=== PATIENT | male | born 1965 | race Caucasian/White ===

== ENCOUNTER 2020-08-06 08:15 | Outpatient (REF) | payer MEDICARE, MEDICAID, SELFPAY | END 2020-08-06 08:16 | disposition home or self-care (01) | LOC: HO.HOSX 08:15 | PROVIDERS: Visit Provider Physician Assistant | DX: M16.11 Unilateral primary osteoarthritis, right hip (principal); Z96.642 Presence of left artificial hip joint | CPT/HCPCS: 99202 ==

== ENCOUNTER → 2020-08-12 13:48 | Outpatient (BNVA) | payer MEDICARE, MEDICAID, SELFPAY | PROVIDERS: PCP Registered Nurse; Visit Provider Orthopaedic Surgery | DX: Z13.89 Encounter for screening for other disorder (principal) | CPT/HCPCS: 99212 ==

== ENCOUNTER → 2020-09-23 12:53 | Outpatient (REF) | payer MEDICARE, MEDICAID, SELFPAY ==
--- NOTE | 2020-09-23 14:11 | ECG_ITS ---
Test Reason : Z01.810 - Encounter for preprocedural cardiovascular exam... Blood Pressure : / mmHG Vent. Rate : 070 BPM Atrial Rate : 070 BPM P-R Int : 156 ms QRS Dur : 080 ms QT Int : 362 ms P-R-T Axes : 035 080 021 degrees QTc Int : 390 ms Normal sinus rhythm Normal ECG No previous ECGs available Referred By: Darnell Instrum Electronically Signed By:KENNEDY LADD
[2020-09-23 15:01] LABS: MANUAL DIFF FLAG NO
[2020-09-23 15:08] LABS: Basophils Percent Auto 0.4 % (0-2); Eosinophils Absolute Auto 0.1 X10*3/uL (0.0-0.4); Eosinophils Percent Auto 1.2 % (0-4); Hematocrit 46.9 % (42-52); Hemoglobin 15.9 g/dl (14.0-18.0); Imm Gran Abs Auto 0.08 X10*3/uL (0.00-0.03); Lymphocytes Absolute Auto 2.6 X10*3/uL (1.2-4.9); Lymphocytes Percent Auto 32.4 % (20-40); Mean Corpuscular HGB Conc 33.9 g/dl (31.0-36.0); Mean Corpuscular Hemoglobin 29.6 pg (27.0-33.0); Mean Corpuscular Volume 87.2 fL (80-98); Mean Platelet Volume 9.2 fL (9.4-12.4); Monocytes Absolute Auto 0.7 X10*3/uL (0.1-1.2); Monocytes Percent Auto 8.6 % (2-11); Neutrophils Absolute Auto 4.6 X10*3/uL (2.0-8.3); Neutrophils Percent Auto 56.4 % (45-73); Platelet Count 212 X10*3/uL (160-400); Red Blood Count 5.38 X10*6/uL (4.60-5.80); Red Cell Distribution Width 13.2 % (11.0-16.0); White Blood Count 8.1 X10*3/uL (4.8-10.8)
[2020-09-23 15:32] LABS: Anion Gap 10 (12-20); Blood Urea Nitrogen 18 mg/dL (9-16); Calcium 9.3 mg/dL (8.4-10.2); Carbon Dioxide 33 mmol/L (22-29); Chloride 103 mmol/L (96-108); Estimated Glomerular Filt Rate > 60; Glucose Random 100 mg/dL (60-115); Potassium 4.8 mmol/L (3.3-5.1); Sodium 141 mmol/L (135-145)
== END ==
LOC: HO.CARD 12:53
PROVIDERS: Visit Provider Orthopaedic Surgery
DX: Z01.810 Encounter for preprocedural cardiovascular examination (principal); Z01.812 Encounter for preprocedural laboratory examination
CPT/HCPCS: 36415; 80048; 85025; 93005

== ENCOUNTER → 2020-10-22 12:27 | Outpatient (BNVA) | payer MEDICARE, MEDICAID, SELFPAY | PROVIDERS: Visit Provider Physician Assistant | DX: M16.11 Unilateral primary osteoarthritis, right hip (principal) | CPT/HCPCS: 99212 ==

== ENCOUNTER 2020-10-27 06:25 | Inpatient (IN) | payer MEDICARE, MEDICAID, SELFPAY ==
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
[2020-10-20 12:01] VITALS: BP 148/72; PULSE 65; RESP 18; BMI 38.3
[2020-10-20 15:02] LABS: MRSA Nasal PCR NEGATIVE (Negative); SA Nasal PCR NEGATIVE (Negative)
[2020-10-27] VITALS (14 sets, daily range): BP systolic 127–179; BP diastolic 72–101; PULSE 64–78; RESP 14–20; TEMP 36.1–36.8; O2SAT 94–99
--- NOTE | ~2020-10-27 | XR_ITS ---
EXAMINATION: XR HIP, RIGHT CLINICAL INFORMATION: Postop COMPARISON: Previous x-ray June 2020 TECHNIQUE: AP view of the lower pelvis and 2 views of the right hip. FINDINGS: There is a new right hip replacement in satisfactory position. No fracture or dislocation is seen. There is a left hip replacement in satisfactory position. There are postoperative changes to the soft tissues. XR/XR hip RT w PEL1V IMPRESSION: Satisfactory appearance of right hip replacement.
[2020-10-27] MEDS: oxyCODONE HCl ER 10 MG TAB.ER.12H PO (06:38)
[2020-10-27 06:58] LABS: COVID-19 Test Negative (Negative)
[2020-10-27] MEDS: Lactated Ringers 1,000 ML 80 ML IVCONT ×3 (07:06→22:50)
--- NOTE | 2020-10-27 07:36 | MHC.SHP ---
Pre-Procedural Eval Section A Date of Service: 10/27/20 The patient is an INPATIENT: No Changes since office visit: No Cold of Flu in the past 2 weeks, No New Medical Problems, No Changes in Medication and No Patient answered all questions The History & Physical has been completed within 30 days and I have reviewed it.: Yes Section B Chief Complaint: right hip osteoarthritis Allergies: Allergies Allergy/AdvReac Type Severity Reaction Status Date / Time NSAIDS (Non-Steroidal AdvReac Severe severe Verified 10/20/20 12:33 Anti-Inflamma sstomach pain Plan I have reviewed the history and physical and performed a pertinent physical examination on my patient. No changes have occurred unless specified.
[2020-10-27] MEDS: HYDROmorphone HCl 0.5 MG/0.5 ML SYRINGE IVPUSH ×4 (09:48→10:13)
[2020-10-27] MEDS: LORazepam 2 MG/ML VIAL IVPUSH (09:58)
[2020-10-27] MEDS: oxyCODONE HCl Immed Release 5 MG TABLET 10 MG PO ×4 (10:01→22:32)
[2020-10-27] MEDS: Morphine Sulfate 4 MG/ML CARTRIDGE 3 MG IVPUSH ×5 (12:40→21:36)
--- NOTE | 2020-10-27 12:59 | W.PM.OPN ---
Operative Note Operative Note Date of Service: 10/27/20 Narrative: OPERATIVE PROCEDURE SURGEON: Dr Patrick(Theresa) Instrum PAYROLL ADMINISTRATOR: Valentín Bolanos PAC PREOP DIAGNOSIS: Osteoarthritis right hip POSTOP DIAGNOSIS: Same OPERATIVE PROCEDURE: Right Total hip arthroplasty - Trini Accolade II size 4 x 132 degree femoral component, 36 mm standard Biolox head, 54 mm Trident acetablular component, 36 mm x 0 degrees acetabular liner CLINICAL NOTE: This very pleasant individual comes in today in regards to their right hip. There is evidence of osteoarthritis. This failed nonoperative management. Therefore after explaining the risks benefits and alternatives and answering all the questions it was mutually agreed upon to carry following procedure. OPERATIVE DETAILS Under a general anesthetic the patient was placed in the left decubitus position. The leg was then prepped and draped in standard fashion. Surgical time-out was then performed. Patient is identified. Procedure confirmed. Site confirmed. Medical and allergy history was reviewed. Preoperative antibiotics were given. Standard DVT prophylaxis in place. Transemic acid was given as well. All was discussed and agreed upon. Standard anterolateral approach to the hip was carried out. Hemostasis was achieved along the way at all points with electrocautery. This brought us down to the level of the fascia slime. This was divided along the length of the incision. The abductor musculature was identified. The anterior 2/3 were divided through tendon directly onto the greater trochanter. Muscle was then elevated off the capsule down to the level of the acetabulum. At this point a capsulectomy was then performed. The hip was then dislocated. Obvious evidence of osteoarthritis. The head and neck was then resected according to preoperative templating. We then turned our attention to the acetabulum. The remainder of the capsule and acetabular look labrum was removed. The soft tissue within the fovea was excised as well. Osteophytes were removed from the rim. Then the bowl curette was used to remove any remaining cartilage. Starting with the 52 mm Reamer the acetabulum was sequentially reamed up to a size 54 mm. The trial acetabulum was placed at this point. It demonstrated appropriate fit fill and alignment. Therefore the 54 acetabulum was selected and brought up the table. The acetabulum was then thoroughly irrigated. The permanent component was brought up on the table. It was then press fit into place with excellent fit and alignment. A trial liner for the 36 mm head was selected. It was placed and we turned our attention to the femur. Box osteotome was used to lateralize the canal. T Reamer was then used to sound the canal. The canal was then sequentially broached from a 0 to a size 4. It had excellent medial lateral fit and rotational stability. A trial reduction was then performed using the 132 degree collar and the 36 mm standard head. The hip was reduced. It was placed through range of motion. It demonstrated excellent leg lengths. Full range of motion. Stable in all positions. And therefore the Accolade II, size for by 132 degrees femoral component along with the 36 mm x 0 degree acetabular liner, and the 36 mm standard head were selected and brought up to the table. The hip was redislocated. The trial components were then all removed. The acetabular was thoroughly irrigated. The permanent liner was tapped into place. Turning our attention back to the femur, it was thoroughly irrigated. The permanent component was brought up to the table. It was then tapped into place with the same fit and fill as the broach had been. The head was brought up. The Joseph taper was cleaned and dried. The head tapped into place. Final reduction was then performed which again demonstrated excellent leg length is. Full range of motion. And excellent stability. Therefore proceeded closure. The wound was thoroughly irrigated. The abductor musculature was repaired with #2 Dexon. The fascia slime was closed with #2 Quill suture. The skin was approximated using interrupted 2-0 Polysorb. The skin was then closed with nitin. Sterile dressing was then applied. The patient then had the anesthesia reversed. They were transferred supine to the room bed then taken to recovery room in good condition. Intraoperatively a 2nd unit transxemic acid was given. There was approximately 100 cc of blood loss. No intraop transfusions or complications.
[2020-10-27] MEDS: 0.9 % Sodium Chloride Flush 3 ML SYRINGE IVFLUSH (16:09)
--- NOTE | 2020-10-27 17:41 | PC.NURSE ---
at 1600 pt received 3mg of morphine for 10/10 R hip pain. 1hr later pt cont to have 10/[address] reached out to Dr Peralta at 1720 for recommendations. advised to give another 3mg of morphine. administered 3mg of morphine early per MD order. will cont to monitor and assess
[2020-10-28] VITALS (9 sets, daily range): BP systolic 147–192; BP diastolic 68–94; PULSE 75–87; RESP 15–18; TEMP 36–37.1; O2SAT 94–97
[2020-10-28] MEDS: Morphine Sulfate 4 MG/ML CARTRIDGE 3 MG IVPUSH ×5 (01:02→19:51)
[2020-10-28] MEDS: oxyCODONE HCl Immed Release 5 MG TABLET 10 MG PO ×6 (02:05→22:35)
--- NOTE | 2020-10-28 07:48 | P.PNOP_ITS ---
Subjective Subjective Date of Service: 10/28/20 Interval history: POD 1 s/p RT PADMAJA No overnight events resting in bed, has discomfort in leg with hip flexion denies cp, sob, palpitations. Physical Exam Vital Signs: Vital Signs: Last Vital Signs Temp 98.1 F 10/28/20 04:00 Pulse 80 10/28/20 04:00 Resp 18 10/28/20 04:00 BP 149/68 H 10/28/20 04:00 Pulse Ox 95 10/28/20 04:00 Body Mass Index 38.3 Const: General: cooperative, healthy appearing and no acute distress Resp: Effort & Inspection: normal respiratory effort and able to speak in complete sentences Cardio: Rate: regular rate Peripheral pulses: Peripheral pulses 2+ throughout GI: Palpation (GI): Soft to palpation Skin: General skin exam: no rashes or lesions noted Extrem: Other: incision clean dry and intact. No erythema or effusion. Calf supple nontender. Neurovascularly intact. Progress Note: A&P Assessment and plan (1) History of total right hip replacement: Status: Acute Assessment and Plan: * Continue pain mgmnt * Begin lovenox for dvt ppx * begin PT for LT PADMAJA * Dispo planning-Pending PT eval, pain mgmnt Fall Risk Details Current Medications: Current Medications Generic Name Dose Route Start Last Admin Trade Name Freq PRN Reason Stop Dose Admin Acetaminophen 650 mg 10/27/20 14:00 10/28/20 07:20 Acetaminophen 325 Mg Tablet PO Not Given Q6H [facility] Enoxaparin Sodium 40 mg 10/28/20 11:00 Enoxaparin Sodium 40 Mg/0.4 Ml Syringe SUBCUT Q24H [facility] Lactated Ringer's 1,000 mls @ 80 mls/hr 10/27/20 06:30 10/28/20 07:20 Lr IVCONT Not Given .[id number] [facility] Morphine Sulfate 3 mg 10/27/20 10:41 10/28/20 05:19 Morphine Sulfate 4 Mg/Ml Cartridge IVPUSH 3 mg Q2H PRN Administration Pain, Severe (Pain Scale 7-10) Naloxone HCl 0.2 mg 10/27/20 10:41 Naloxone Hcl 0.4 Mg/Ml Vial IVPUSH Q2M PRN Excessive sedation or RR < 8 Ondansetron HCl 4 mg 10/27/20 10:41 Ondansetron Hcl 4 Mg/2 Ml Vial IVPUSH Q8H PRN Nausea and Vomiting Oxycodone HCl 10 mg 10/27/20 10:41 10/28/20 06:27 Oxycodone Hcl Immed Release 5 Mg Tablet PO 10 mg Q4H DOMONIQUE Administration Sodium Chloride 3 ml 10/27/20 16:00 10/28/20 07:18 0.9 % Sodium Chloride Flush 3 Ml Syringe IVFLUSH Not Given QSHIFT DOMONIQUE Time Spent With Patient Time: Total time spent is greater than 50% in coordination of care (as documented) at patient's floor/unit and/or counseling patient: Time with patient: less than 15 minutes Procedures Date of Service Date of Service: 10/28/20 Quality Stroke Does the patient have a stroke diagnosis?: No VTE Prior VTE?: No VTE Risk Level:: Surgical - very high VTE Device Contraindication: N/A - Device Ordered VTE Drug Contraindication: N/A - Med Ordered
[2020-10-28 08:27] LABS: Hematocrit 41.9 % (42-52); Hemoglobin 14.4 g/dl (14.0-18.0)
[2020-10-28] MEDS: Enoxaparin Sodium 40 MG/0.4 ML SYRINGE SUBCUT (10:52)
--- NOTE | 2020-10-28 11:10 | HO.POSTANES ---
Post Anesthesia Evaluation Post Anesthesia Evaluation Vital Signs: Vital Signs Temp Pulse Resp BP Pulse Ox 10/28/20 09:41 81 192/79 H 97 10/28/20 08:00 98.4 F 81 17 192/79 H 97 10/28/20 04:00 98.1 F 80 18 149/68 H 95 10/28/20 00:00 98.4 F 75 16 174/86 H 97 Anesthesia: General Endotracheal-GETA Mental Status: Awake Pain Control: Satisfactory Nausea/Vomiting: None Hydration: Adequate Anesthesia-Related Issues: No Anes. Related Issues
--- NOTE | 2020-10-28 11:38 | MHC.CM.PN ---
NURSE SKEIN YARN DYER HELPER NOTE ELECTRONIC MEDICAL RECORD REVIEWED ALONG WITH CASE DISCUSSED WITH STAFF NURSE AND ON MULTIPLE DISCIPLINARY ROUNDS . MET WITH PATIENT S/P RIGHT TOTAL HIP ARTHROSCOPY. BY DR HERNANDEZ ON 10/27/20 . MET WITH PATIENT . HE REPORTED THAT HE LIVES ALONE , (BUT HAS A [place] FRIENDS THAT CAN HELP HIM OUT IF NEEDED ) HE CONFIRMED PCP TIM STAPLETON REACTOR KETTLE OPERATOR (UNDER DR HELM. HE DOES NOT HAVE A HEALTH CARE PROXY AND WAS NOT INTERESTED AT THIS TIME TO COMPLETE ONE, HE HAD BEEN INDEPENDENT IN ALL ADLS AND MOBILITY, HAS APARTMENT WITH A RAMP, ELEVATED TOILET SEAT, GRAB BAR IN THE SHOWER, HE HAS NO VNA OR HOME SERVICES PRESENTLY IN THE HOME, HE CONTINUES TO SMOKE CIGARETTES AND TAKES MARIJUANA, REVIEWED NURSING AGENCIES AND CHOSE THE [facility] , (THIS REFERRAL WAS IMITATED)DISCHARGE PLAN- . D/C PLAN HOME WITH NEW VNA FOR NURSING FOR SC LOVENOX REINFORCEMENT TEACHING AND HOME PHYSICAL THERAPY , MODEL AND MOLD MAKER PLASTER TO CONTINUE TO FOLLOW AND MONITOR FOR POSSIBLE STR , ATT THIS TIME PATIENT DID NOT WANT TO DISCUSS THIS PCP TIM MARTINO REACTOR KETTLE OPERATOR IN [place] WORKING UNDER DR ALICJA FELIPEATION FRIENDS REQUESTED NURSING TO START TEACHING FOR SC LOVENOX ADMINISTRATION
[2020-10-28] MEDS: Lactated Ringers 1,000 ML 80 ML IVCONT (19:55)
[2020-10-28] MEDS: 0.9 % Sodium Chloride Flush 3 ML SYRINGE IVFLUSH (22:36)
[2020-10-29] MEDS: oxyCODONE HCl Immed Release 5 MG TABLET 10 MG PO ×3 (03:51→11:52)
[2020-10-29 04:00] VITALS: BP 147/68; PULSE 83; RESP 16; TEMP 36.6; O2SAT 92
[2020-10-29 06:23] LABS: Hematocrit 40.1 % (42-52); Hemoglobin 13.9 g/dl (14.0-18.0)
[2020-10-29] MEDS: Lactated Ringers 1,000 ML 80 ML IVCONT (07:37)
[2020-10-29 07:52] VITALS: BP 158/79; PULSE 85; RESP 19; TEMP 36.7; O2SAT 97
--- NOTE | 2020-10-29 08:29 | PM.DS ---
DS: Providers Provider Date of Service: 10/29/20 Date of admission: 10/27/20 06:25 Primary care physician: Unknown Physician DS: Diagnosis Discharge Diagnosis (1) History of total right hip replacement: Status: Acute DS: Medications Discharge Medications Home Medications: Previous Rx's Medication Instructions Recorded walker #1 ea 09/24/20 acetaminophen 650 mg PO Q6H 30 Days #240 tab 10/29/20 enoxaparin 40 mg SUBCUT Q24H 28 Days #11.2 ml 10/29/20 oxycodone 10 mg PO Q4H 7 Days #42 tab 10/29/20 DS: Summary Hospital Course Hospital Course: This is a 55-year-old gentleman who presented to our office with ongoing right hip pain. He had failed all conservative measures and agree to move forward with right total hip arthroplasty. The patient underwent a successful RT TH arthroplasty, was transferred to PACU and then to the floor to recover. During their stay, their vitals were stable, afebrile at 98.0 . Labs were unremarkable, H/H 13.9/40.1 . POD 1 he was started on Lovenox for DVT ppx, they also received services twice a day. Prior to discharge, their dressing was change, incision clean dry and intact, new Aquacel dressing applied and the plan was to be discharged home with VNA services Time Spent with Patient Time attestation: Total time spent providing and/or coordinating discharge services: Discharge coordination time: Less than 30 minutes Quality: Stroke Does the patient have a stroke diagnosis?: No Physical Exam Vital Signs: Vital Signs: Last Vital Signs Temp 98.0 F 10/29/20 07:52 Pulse 85 10/29/20 07:52 Resp 19 10/29/20 07:52 BP 158/79 H 10/29/20 07:52 Pulse Ox 97 10/29/20 07:52 Body Mass Index 38.3 Extrem: Other: incision clean dry and intact. Pratts intact. No erythema or effusion. Calf supple nontender. Neurovascularly intact. DS: Data Data Completed and Pending Completed studies during hospitalization [Text1]: Pending at discharge 10/27/20 09:00 Surgical [PTH] Routine Labs on day of discharge: Laboratory Results - last 24 hr 10/28/20 10/29/20 08:09 05:45 Hgb 14.4 13.9 L Hct 41.9 L 40.1 L Discharge Plan Discharge Patient Disposition: Home Health Service Discharge Diagnosis: s/p RT PADMAJA Referrals: [facility] [Outside] - 1 Day (discharged home with new referral to the [facility] for sc lovenox administration teaching reinforcement and home phyisscal thearpy they will be out the day after your discharge . pcp aislinn monterroso recreation supervisor (under dr purcell) fabiola appointment has been made for you [facility] discharge orthopedic surgicaL FOLLOW UP PER DISCHRFGE INSTRUCTIONS TRANSPORTATION PATIENT TO SELF ARRANGE WITH FRIENDS) Valentín Bolanos PA-C [Physician Registered Respiratory Technician] - 2 Weeks [place]11/12/20 1:[place] [facility] [place] [facility] Valentín Bolanos PA-C[place] Discharge Medications: New oxycodone 10 mg tablet 10 mg PO Q4H 7 Days Qty: 42 RF: 0 acetaminophen 325 mg Tablet 650 mg PO Q6H 30 Days Qty: 240 RF: 0 enoxaparin 40 mg/0.4 mL Syringe 40 mg subcut Q24H 28 Days Qty: 11.2 RF: 0 Continued (DME) walker [facility] [place] See Rx Instructions .MEDSUPPLY Qty: 1 RF: 0 Discontinued oxycodone 5 mg capsule 5 mg PO TID RF: 0 Discharge Orders: Discharge Order (Routine); Ordered 10/29/20 Ordered By: Valentín Bolanos Diet: regular diet Activity on Discharge: Use cane or walker Stand Alone Forms: Patient Portal Discharge page Care Plan Goals: Restore function of joint Health Concerns: none Plan of Treatment: Physical Therapy Pain management DVT prophylaxis Assessment: Physical Therapy for Total hip arthroplasty: no precautions, gait training, ROM, strength Limit stair climbing No showering, no tub bath-keep dressing clean, dry and intact No driving x6 weeks ContinueLovenox x 4 weeks [place] [facility] [place] [facility] [place]
--- NOTE | 2020-10-29 08:42 | P.F2F_ITS ---
Service Date Service Date: 10/29/20 Reasons for Services Reason for longterm: medication management Reason for physical therapy: home safety and mobility, therapeutic exercises, restore joint function, gait/transfer training and energy conservation Reason for occupational therapy: home safety and mobility, therapeutic exercises, restore joint function, gait/transfer training and energy conservation Overseeing Care: Darnell Peralta Homebound: Leaving the home is medically contraindicated at this time without the asist of a device and/or another person due th the listed conditions above and below. Reason homebound: unsteady gait / fall risk, leg weakness, pain with ambulation, poor balance / fall risk and unable to drive Homebound supporting statement: Pt. is considered home bound due to recent surgery. Unable to drive, poor balance, poor gait mechanics. Certification: Based on the above findings, I certify that this patient is confined to the home and needs intermittent longterm care, physical therapy and/or speech therapy, or continues to need occupational therapy. The patient is under my care, and I have initiated the establishment of the plan of care. The patient will be followed by a physician who will periodically review the plan of care.
--- NOTE | 2020-10-29 09:28 | MHC.CM.PN ---
NURSE PROGRAMS DIRECTOR NOTE ELECTRONIC MEDICAL RECORD REVIEWED ALONG WITH CASE DISCUSSED WITH STAFF NURSE AND ORTHOPEDIC PA VIA TIGER TEXT ANTICIPATED DISCHARGE LATER TODAY HOME WITH NEW REFERRAL TO THE [facility] FOR NSG FOR SC LOVENOX ADMINISTRATION REINFORCEMENT TEACHING AND HOME PHYSICAL THERAPY PCP TIM RICHARDS PET WALKER FOR POST HOSPITAL DISCHARGE FOLLOW UP ORTHOPEDIC SURGICAL FOLLOW UP PER DISCHARGE INSTRUCTIONS TRANSPORTATION PATIENT TO SELF ARRANGE
[2020-10-29] MEDS: Morphine Sulfate 4 MG/ML CARTRIDGE 3 MG IVPUSH (10:05)
[2020-10-29 10:19] VITALS: BP 158/79; PULSE 85; O2SAT 97
[2020-10-29] MEDS: Enoxaparin Sodium 40 MG/0.4 ML SYRINGE SUBCUT (11:53)
== END 2020-10-29 12:45 | disposition home health service (06) | DRG 470 ==
LOC: HO.SSSA 06:26 → HO.S3 10:37
PROVIDERS: Physician Assistant; Admitting Provider Orthopaedic Surgery; PCP Registered Nurse; Visit Provider Orthopaedic Surgery
PROC: 0SR90JA Replacement of Right Hip Joint with Synthetic Substitute, Uncemented, Open Approach (ICD-10-PCS; CPT 27130; principal; 2020-10-27 07:30)
DX: M16.11 Unilateral primary osteoarthritis, right hip (principal); Z20.822 Contact with and (suspected) exposure to COVID-19; Z86.19 Personal history of other infectious and parasitic diseases; F17.210 Nicotine dependence, cigarettes, uncomplicated; Z71.6 Tobacco abuse counseling; Z85.818 Personal history of malignant neoplasm of other sites of lip, oral cavity, and pharynx; Z88.6 Allergy status to analgesic agent; Z79.899 Other long term (current) drug therapy
CPT/HCPCS: 27130; 36415; 73502; 85014; 85018; 86850; 86900; 86901; 87635; 87640; 87641; 88304; 88311; 97110; 97116; 97161; 97166; 97535; C1729; C1776; J0131; J0690; J1100; J1170; J1650; J2060; J2250; J2270; J2405; J3010

== ENCOUNTER → 2020-11-13 14:05 | Outpatient (BNVA) | payer MEDICARE, MEDICAID, SELFPAY | PROVIDERS: PCP Registered Nurse; Visit Provider Physician Assistant | DX: Z47.1 Aftercare following joint replacement surgery (principal); Z96.641 Presence of right artificial hip joint | CPT/HCPCS: 99212 ==

== ENCOUNTER → 2020-12-19 12:48 | Outpatient (BNVA) | payer MEDICARE, MEDICAID, SELFPAY | PROVIDERS: Visit Provider Physician Assistant | DX: Z47.1 Aftercare following joint replacement surgery (principal); Z96.641 Presence of right artificial hip joint | CPT/HCPCS: 99212 ==

== ENCOUNTER → 2021-01-26 15:19 | Outpatient (BNVA) | payer MEDICARE, MEDICAID, SELFPAY | PROVIDERS: PCP Registered Nurse; Visit Provider Anesthesiology | DX: M54.50 Low back pain, unspecified (principal) | CPT/HCPCS: 99212 ==

== ENCOUNTER 2021-05-01 12:05 | Outpatient (REF) | payer MEDICARE, MEDICAID, SELFPAY ==
--- NOTE | ~2021-05-01 | XR_ITS ---
EXAMINATION: XR, PELVIS XR HIP, RIGHT CLINICAL INFORMATION: M25.551 - Pain in right hip COMPARISON: Radiographs pelvis 10/28/2020, and outside radiographs pelvis and right hip 06/30/2020 (Jean Pickard). TECHNIQUE: 2 views of the pelvis are obtained along with AP and frog-lateral projections right hip. FINDINGS: There is been prior right hip arthroplasty. Hardware is intact. There is no fracture or dislocation or destructive process. No osteolysis. Mild spurring [place] acetabular rim is stable. Left hip hardware is intact. There is no fracture or destructive process. Some heterotopic bone between the lateral left ilium and greater trochanter is stable. The SI joints and pubis show no diastases. There are degenerative changes again seen lower lumbar spine with disc narrowing L3-S1. Surgical clips again noted right lower quadrant abdomen. XR/XR pelvis 1-2V IMPRESSION: 1. Status post bilateral hip arthroplasty. Hardware intact. No destructive process. 2. Degenerative changes lower lumbar spine.
--- NOTE | ~2021-05-01 | XR_ITS ---
EXAMINATION: XR, PELVIS XR HIP, RIGHT CLINICAL INFORMATION: M25.551 - Pain in right hip COMPARISON: Radiographs pelvis 10/28/2020, and outside radiographs pelvis and right hip 06/30/2020 (Jean Pickard). TECHNIQUE: 2 views of the pelvis are obtained along with AP and frog-lateral projections right hip. FINDINGS: There is been prior right hip arthroplasty. Hardware is intact. There is no fracture or dislocation or destructive process. No osteolysis. Mild spurring [place] acetabular rim is stable. Left hip hardware is intact. There is no fracture or destructive process. Some heterotopic bone between the lateral left ilium and greater trochanter is stable. The SI joints and pubis show no diastases. There are degenerative changes again seen lower lumbar spine with disc narrowing L3-S1. Surgical clips again noted right lower quadrant abdomen. XR/XR hip RT min 2V IMPRESSION: 1. Status post bilateral hip arthroplasty. Hardware intact. No destructive process. 2. Degenerative changes lower lumbar spine.
== END 2021-05-01 12:06 | disposition home or self-care (01) ==
LOC: HO.HOSX 12:05
PROVIDERS: Visit Provider Physician Assistant
DX: M25.551 Pain in right hip (principal); B19.20 Unspecified viral hepatitis C without hepatic coma; F17.210 Nicotine dependence, cigarettes, uncomplicated; Z96.642 Presence of left artificial hip joint
CPT/HCPCS: 72170; 73502; 99212

== ENCOUNTER 2023-11-02 10:08 | Outpatient (AMB) | payer MEDICARE, MEDICAID, SELFPAY ==
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
[2023-11-02 10:21] VITALS: BMI 42.6
== END 2023-11-02 10:49 | disposition home or self-care (01) ==
PROVIDERS: PCP Registered Nurse
DX: G56.01 Carpal tunnel syndrome, right upper limb (principal)
CPT/HCPCS: 99203; 99213

== ENCOUNTER → 2023-11-02 10:08 | Outpatient (BNVA) | payer MEDICARE, MEDICAID, SELFPAY | PROVIDERS: PCP Registered Nurse; Visit Provider Physician Assistant | DX: G56.01 Carpal tunnel syndrome, right upper limb (principal) | CPT/HCPCS: 99202 ==

== ENCOUNTER 2023-12-08 15:22 | Outpatient (REF) | payer MEDICARE, MEDICAID, SELFPAY ==
--- NOTE | 2023-12-08 15:26 | EMG_ITS ---
Chief complaint: Right hand numbness Reason for referral: Evaluate for Carpal Tunnel Syndrome Referred by: Moises ARMIJO Procedure done: Right upper extremity NCS Precautions and/or limitations: Poor tolerance of test, patient had poor experience in the past, did not want to do needle EMG. The limb temperature was monitored continuously and remained between 32-36 degrees C during the performance of the NCS. Ulnar motor NCS was performed with moderate elbow flexion between 70-90 degrees, with across-elbow distance of 10 cm. Nerve Conduction Studies Anti Sensory Summary Table ?Stim Site NR Onset (ms) Norm Onset (ms) Peak (ms) Norm Peak (ms) O-P Amp (?V) Norm O-P Amp Site1 Site2 Delta-0 (ms) Dist (cm) Bowen (m/s) Norm Bowen (m/s) Right Median Anti Sensory (2nd Digit) Wrist NR <3.6 >10 Wrist 2nd Digit 14.0 Right Radial Anti Sensory (Thumb) Forearm ? 1.6 2.3 <3.1 15.1 Forearm Thumb 1.6 0.0 Motor Summary Table ?Stim Site NR Onset (ms) Norm Onset (ms) O-P Amp (mV) Norm O-P Amp iAmp (mV) Amp (1st) (%) Site1 Site2 Delta-0 (ms) Dist (cm) Bowen (m/s) Norm Bowen (m/s) Right Median Motor (Abd Poll Brev) Wrist ? 8.7 <3.9 4.6 >4.5 5.7 100.0 Elbow Wrist 6.0 19.5 33 >45 Elbow ? 14.7 1.5 1.9 32.6 Right Ulnar Motor (Abd Dig Minimi) Wrist ? 2.6 <3.0 7.7 >5 8.9 100.0 B Elbow Wrist 3.7 21.0 57 >45 B Elbow ? 6.3 6.9 8.5 89.6 A Elbow B Elbow 1.5 10.0 67 >45 A Elbow ? 7.8 7.0 8.7 90.9 FINDINGS: Right median motor nerve showed prolonged distal latency, normal amplitude and slow conduction velocity. Right median sensory nerve absent response. All other nerves tested were within normal. IMPRESSION: 1. This is abnormal and limited study. 2. There is electrodiagnostic evidence for right moderate-severe median neuropathy at the wrist, consistent with Carpal Tunnel Syndrome. 3. There is no electrodiagnostic evidence for ulnar neuropathy based on ulnar motor CMAP. Thank you for your kind referral. Leanna Salcido MD, RHONA Board Certified, [place] [employer] and [employer] (ABPMR) Board Certified, [place] [employer] Electro[employer] (ABEM) CODIN MTDD
== END 2023-12-08 15:23 | disposition home or self-care (01) ==
LOC: HO.NEURO 15:22
PROVIDERS: PCP Internal Medicine
DX: R20.0 Anesthesia of skin (principal); R20.2 Paresthesia of skin
CPT/HCPCS: 95908

== ENCOUNTER → 2023-12-08 15:26 | Outpatient (BNV) | payer MEDICARE, MEDICAID, SELFPAY | PROVIDERS: PCP Internal Medicine; Visit Provider Physical Medicine & Rehabilitation | DX: G56.01 Carpal tunnel syndrome, right upper limb (principal) | CPT/HCPCS: 95908 ==